=== PATIENT | female | born 1995 | race Hispanic/Latino ===

== ENCOUNTER 2018-04-28 20:55 | Emergency (ER) | payer OTHER ==
[~2018-04-28 20:55] MED LIST: ALBUTEROL0.09 MG/A1 INH; FIORICET 325 MG1 TAB PO; PREDNISONE 20MG20 MG PO; TYLENOL #31 TAB PO; ZOFRAN4 M1 SL
[2018-04-28 21:00] VITALS: BP 119/77
--- NOTE | 2018-04-28 22:38 | ED GENERAL ADULT ---
History of Present Illness General Chief Complaint: Sore Throat, Dental Pain Stated Complaint: SORE THROAT Source: patient Exam Limitations: no limitations Vital Signs & Intake/Output Vital Signs & Intake/Output Vital Signs Date Time Temp Pulse Resp B/P B/P Pulse O2 O2 Flow FiO2 Mean Ox Delivery Rate 04/28 2100 96.9 95 18 119/77 98 Room Air Allergies Coded Allergies: NO KNOWN ALLERGIES (12/29/15) Reconcile Medications Acetaminophen/Butalbital/Caf (Fioricet 325 MG-50 MG-40 MG) 1 TAB TAB 1-2 TAB PO Q6P PRN HEADACHE [magic mouthwash] LIQ 1 DOSE PO 4XDP PRN sore throat use before meals and before bed Triage Note: PT TO TRIAGE C/O THROAT PAIN AND SWOLLEN TONSILS X1 DAY. PER PT WAS TOLD IN PAST SHE SHOULD HAVE TONSILS REMOVED. Triage Nurses Notes Reviewed? yes Onset: Gradual Duration: day(s): Timing: constant : No Patient currently breastfeeds: No HPI: 22 y/o female with a h/o asthma presenting with sore throat x1 day. Also endorses rhinorrhea, nasal congestion, nonproductive cough. Denies fevers, chest pain, shortness of breath, abdominal pain, nausea, vomiting, diarrhea, dysuria. No sick contacts or recent travel. Reports that she was previously scheduled for tonsillectomy, but never followed up for the procedure. Past History Travel History Traveled to [place] past 21 day No Medical History Any Pertinent Medical History? see below for history Neurological: NONE EENT: NONE Cardiovascular: NONE Respiratory: asthma Gastrointestinal: NONE Hepatic: NONE Renal: NONE Musculoskeletal: NONE Psychiatric: NONE Endocrine: NONE Blood Disorders: NONE Cancer(s): NONE [employer]/Reproductive: NONE Surgical History Surgical History: N Psychosocial History What is your primary language Amharic Tobacco Use: Never used Family History Hx Contributory? No Review of Systems Review of Systems Constitutional: Reports: no symptoms. EENTM: Reports: see HPI. Respiratory: Reports: see HPI. Cardiovascular: Reports: no symptoms. GI: Reports: no symptoms. Genitourinary: Reports: no symptoms. Musculoskeletal: Reports: no symptoms. Skin: Reports: no symptoms. Neurological/Psychological: Reports: no symptoms. Hematologic/Endocrine: Reports: no symptoms. Immunologic/Allergic: Reports: no symptoms. Physical Exam Physical Exam General Appearance: well developed/nourished, no apparent distress, alert, awake , comfortable Head: atraumatic, normal appearance Eyes: Bilateral: normal appearance. Ears, Nose, Throat: mild symmetric tonsillar enlargement, no exudate or erythema. Uvula midline. Neck: normal inspection, no cervical lymphadenopathy Respiratory: normal breath sounds, lungs clear Cardiovascular: regular rate/rhythm Gastrointestinal: soft, non-tender Back: normal inspection Extremities: normal inspection Neurologic/Psych: awake, alert, oriented x 3, normal gait, normal mood/affect Skin: intact, normal color, warm/dry Core Measures ACS in differential dx? No CVA/TIA Diagnosis: No Sepsis Present: No Sepsis Focused Exam Completed? No Progress Differential Diagnoses I considered the following diagnoses in my evaluation of the patient: [strep pharyngitis vs viral pharyngitis vs URI, low concern for HAT LINER vs RPA vs epiglottis] Plan of Care: Orders Procedure Date/time Status THROAT CULTURE W/QUICK STREP 04/28 2103 Active Current Medications Sig/Nubia Start time Last Medication Dose Stop Time Status Admin Dexamethasone 10 MG ONCE ONE 04/285 UNir (Decadron) 04/28 2246 Ketorolac 60 MG ONCE ONE 04/28 2245 UNVr Tromethamine 04/28 2246 (Toradol) Rapid strep neg, culture sent. Likely with viral pharyngitis. Given dexamethasone and Toradol for symptomatic relief. Counseled on supportive care and given Rx magic mouthwash to use at home. Will follow up with her primary care provider and given strict return precautions. Initial ED EKG: none Departure Departure Disposition: HOME OR SELF CARE Condition: Stable Clinical Impression Primary Impression: Pharyngitis Referrals: Nikolai LIMA,Tommie Connors (PCP/Family) Additional Instructions: Use Magic mouthwash as needed for sore throat. Follow-up with your primary care provider for reevaluation. Return to the emergency department for any new or worsening symptoms. Departure Forms: Customer Survey General Discharge Information Prescriptions: Current Visit Scripts [magic mouthwash] 1 DOSE PO 4XDP PRN sore throat #360 ML use before meals and before bed Critical Care Note Critical Care Note Critical Care Time: non-applicable
[2018-04-28] MEDS ORDERED: magic mouthwash PO (22:44)
== END 2018-04-28 23:07 ==
LOC: ERH 20:55
DX: J02.9 Acute pharyngitis, unspecified (principal)
CPT/HCPCS: 96372; J1885